=== PATIENT | female | born 2000 | race Caucasian/White ===

== ENCOUNTER 2020-04-02 05:44 | Inpatient (IN) | payer OTHER ==
[~2020-04-02] VITALS: Ht 162.6 cm; Wt 53.6 kg
[2020-04-02] MEDS ORDERED: WELLTAB38 PO (06:03)
[2020-04-02 06:27] LABS: MEAN CORPUSCULAR HEMOGLOBIN 30.4 pg (27.0-33.0); MEAN CORPUSCULAR HGB CONC 32.6 g/dl (32.0-36.5); MEAN CORPUSCULAR VOLUME 93.3 fl (80.0-96.0); PLATELET COUNT, AUTOMATED 266 10^3/uL (150-450); RED BLOOD COUNT 4.61 10^6/uL (4.00-5.40); WHITE BLOOD COUNT 7.2 10^3/uL (4.0-10.0)
[2020-04-02] MEDS ORDERED: C 50TAB PO (06:36)
[2020-04-02] MEDS ORDERED: BUPR150T5 PO (06:36)
[2020-04-02] MEDS ORDERED: D31000TA2 PO (06:36)
[2020-04-02] MEDS ORDERED: VITA500S3 SL (06:37)
[2020-04-02] MEDS ORDERED: HEAL1TAB6 PO (06:37)
[2020-04-02 06:48] LABS: AMPHETAMINES LEVEL URINE NEGATIVE (NEGATIVE); BARBITURATES URINE NEGATIVE (NEGATIVE); BENZODIAZEPINES URINE NEGATIVE (NEGATIVE); CANNABINOIDS URINE NEGATIVE (NEGATIVE); COCAINE METABOLITE URINE NEGATIVE (NEGATIVE); METHADONE URINE NEGATIVE (NEGATIVE); OPIATES URINE NEGATIVE (NEGATIVE); PHENCYCLIDINE URINE NEGATIVE (NEGATIVE)
[2020-04-02 06:54] LABS: HCG, SERUM QUALITATIVE NEGATIVE (NEGATIVE)
[2020-04-02 06:55] LABS: ACETAMINOPHEN LEVEL < 2.0 UG/ML (10.0-30.0); ALBUMIN 4.4 GM/DL (3.2-5.2); ALT/SGPT 22 U/L (12-78); BILIRUBIN,DIRECT < 0.1 MG/DL (0.0-0.2); BILIRUBIN,TOTAL 0.3 MG/DL (0.2-1.0); BLOOD UREA NITROGEN 16 MG/DL (7-18); CALCIUM LEVEL 9.3 MG/DL (8.5-10.1); CARBON DIOXIDE LEVEL 30 MEQ/L (21-32); CHLORIDE LEVEL 108 MEQ/L (98-107); CREATININE FOR GFR 1.06 MG/DL (0.55-1.30); ETHYL ALCOHOL (ETHANOL) < 0.003 % (0.000-0.010); GLUCOSE, FASTING 116 MG/DL (70-100); POTASSIUM SERUM 4.7 MEQ/L (3.5-5.1); SALICYLATE LEVEL < 1.7 MG/DL (5.0-30.0); SODIUM LEVEL 141 MEQ/L (136-145)
[2020-04-02] MEDS ORDERED: IBUPROFEN 400 MG TAB PO PRN (12:15)
[2020-04-02] MEDS ORDERED: diphenhydrAMINE 25MG CAP PO PRN (12:15)
[2020-04-02] MEDS ORDERED: haloperidoL 5 MG TAB PO PRN (12:15)
[2020-04-02] MEDS ORDERED: ACETAMINOPHEN TAB 650MG DOSE (2X325MG) PO PRN (12:15)
[2020-04-02] MEDS ORDERED: MOM 30ML SUSPENSION UDC PO PRN (12:15)
[2020-04-02] MEDS ORDERED: OLANZapine ORAL DISINTEGRATING TAB 5MG PO PRN (12:15)
[2020-04-02 13:30] VITALS: BP 133/90
[2020-04-02] MEDS: buPROPion **SR TABLET** (ZYBAN) 150MG PO SCH (15:54)
[2020-04-03 07:10] VITALS: BP 115/60
--- NOTE | 2020-04-03 07:57 | MHHPEPDOC ---
[facility] History & Physical History and Physical DATE OF ADMISSION: Apr 02, 2020 at 12:12 HPI: Moon presents today for an initial visit. She states that she came in today because her friend thought that she was going to overdose. She states that she would not be able to slit her wrists, and she would not overdose on Ibuprofen. She states that she does not want to live anymore, and she has always felt this way since 5th grade. Before that, she always had dreams about dying. She thought that she could pretend to feel better because her mom told her that she made other people uncomfortable. This is her second time in an inpatient unit. She was unconscious the first time in the ICU, and then they brought her to the psychiatric unit. She does see mental health as an outpatient. She denies having any auditory hallucinations. She states that she does have some paranoia whenever it is dark outside and late at night. She denies any traumatic history or any history of abuse. She reports that she has stayed up for a long period of time, but she did not do anything impulsive. She states that she has anxiety a bout small things. She thinks about her parents, if her mom will let her drive, or if her parents will make her eat food that she dislikes to eat. Her parents make her eat food in front of them, and then she will throw up the food afterwards in the shower. Her mom always tries to put her into a long-term care and it makes her feel unwanted. Her family was supposed to move to [place], but she thinks it is not happening anymore. She reports going to college for once semester, and she overdosed at the end of the semester. She was in the ICU for 4 days and the psychiatric unit for 3 days. MEDICATIONS: She is currently taking Wellbutrin 150 mg, but she states that it does not do anything. She has also taken Lexapro before, but she stopped it because it made her unable to connect with people emotionally. FAMILY HISTORY: She states that her mom has attempted suicide, but was not hospitalized and did not get any treatment. SOCIAL HISTORY - OCCUPATION: She states that she loves her job, and that when she helps others, it helps her feel better. SOCIAL HISTORY - LIVING SITUATION: She states that she currently lives with her mom and is currently employed. SOCIAL HISTORY - SUBSTANCE USE: She states that she has only drank once when she was at a constitution party with a friend, but she denies any tobacco, alcohol, or marijuana. Objective Appearance: Fair hygiene. Mood: Dysthymic. Speech: Normal volume. Normal rate. Spontaneous and Fluid. Cognition: Alert, Attentive, and Oriented to person, place, time. Grossly intact. Thought Form: Linear. Thought Content: No evidence of delusions. No evidence of aggressive or homicidal ideation. Reports suicidal thoughts. Judgement: Poor judgement. Insight: Poor insight. Assessment F60.3 Borderline personality disorder F33.9 Major depressive disorder, recurrent, unspecified Plan Start Abilify 2 mg nightly. Will not restart Wellbutrin. Treatment, one is risk for suicide, two is ineffective coping. Estimated length of stay is 3-5 days. Potential discharge next week if she improves, will convert to voluntary. Vital Signs Vital Signs Date Time Temp Pulse Resp B/P (MAP) Pulse Ox O2 Delivery O2 Flow Rate FiO2 04/03/20 07:10 98.3 61 14 115/60 (78) 100 Room Air Medications Scheduled Ascorbic Acid (Vitamin C) 500 Mg Tablet, 500 MG PO DAILY, (Reported) Bupropion Hcl (Bupropion HCl Sr) 150 Mg Tab.sr.12h, 150 MG PO DAILY, (Reported) Cholecalciferol (Vitamin D3) (Vitamin D3) 1,000 Unit Tablet, 1,000 UNITS PO DAILY, (Reported) Cyanocobalamin (Vitamin B-12) (Vitamin B-12) 500 Mcg Tab.subl, 500 MCG SL DAILY, (Reported) Multivitamin/Folic Acid/Biotin (Hair, Skin and Nails Tablet) 1 Each Tablet, 3 TAB PO DAILY, (Reported) Allergies Coded Allergies: No Known Allergies (Unverified , 04/02/20) DIONI PATEL DO Apr 03, 2020 07:57
[2020-04-03] MEDS: VITAMIN D 1,000 INTERNATIONAL UNITS TABLET PO SCH (09:00)
[2020-04-03] MEDS: buPROPion **SR TABLET** (ZYBAN) 150MG PO SCH (09:00)
[2020-04-03] MEDS: ASCORBIC ACID 500 MG TAB PO SCH (09:03)
[2020-04-03 16:00] VITALS: BP 128/80
[2020-04-03] MEDS: ARIPiprazole 2 MG TAB PO SCH (20:32)
[2020-04-04 06:17] VITALS: BP 113/57
[2020-04-04] MEDS: buPROPion **SR TABLET** (ZYBAN) 150MG PO SCH (08:43)
[2020-04-04] MEDS: VITAMIN D 1,000 INTERNATIONAL UNITS TABLET PO SCH (08:43)
[2020-04-04] MEDS: ASCORBIC ACID 500 MG TAB PO SCH (08:43)
[2020-04-04 16:08] VITALS: BP 129/70
[2020-04-04] MEDS: ARIPiprazole 2 MG TAB PO SCH (21:17)
[2020-04-04] MEDS: traZODone 50 MG TAB PO PRN (21:19)
--- NOTE | 2020-04-04 22:51 | HPEPDOC ---
General Date of Admission Apr 02, 2020 at 12:12 Date of Service: Apr 04, 2020 Chief Complaint The patient is a 19-year-old female admitted with a reason for visit of Unspecified Depressive Disorder. Source: Patient Exam Limitations: No limitations Timing/Duration: Unsure Severity: Severe Associated Symptoms: Denies Symptoms History of Present Illness 19 y.o F with PMH of depression presented for worsening depression. no medical condtions. ROS negative Home Medications Scheduled Ascorbic Acid (Vitamin C) 500 Mg Tablet, 500 MG PO DAILY, (Reported) Bupropion Hcl (Bupropion HCl Sr) 150 Mg Tab.sr.12h, 150 MG PO DAILY, (Reported) Cholecalciferol (Vitamin D3) (Vitamin D3) 1,000 Unit Tablet, 1,000 UNITS PO DAILY, (Reported) Cyanocobalamin (Vitamin B-12) (Vitamin B-12) 500 Mcg Tab.subl, 500 MCG SL DAILY, (Reported) Multivitamin/Folic Acid/Biotin (Hair, Skin and Nails Tablet) 1 Each Tablet, 3 TAB PO DAILY, (Reported) Allergies Coded Allergies: No Known Allergies (Unverified , 04/02/20) Past Medical History Medical History no known conditions Surgical History none Family History Significant Family History: Noncontributory Social History * Smoker: Denies Alcohol: Denies Drugs: denies Psychosocial History: Depression A-FIB/CHADSVASC A-FIB History Current/History of A-Fib/PAF?: No Current PO Anticoag Therapy: No Review of Systems Constitutional: Denies: Chills, Fever, Night Sweats Eyes: Denies: Pain, Vision change ENT: Denies: Head Aches, Ear Pain, Dysphagia Skin: Denies: Rash, Lesions, Breakdown Pulmonary: Denies: Dyspnea, Cough Cardiovascular: Denies: Chest Pain, Palpitations, Orthopnea, Paroxysmal Noc. Dyspnea, Lt Headedness Gastrointestinal: Denies: Nausea, Vomiting, Abdominal Pain, Diarrhea Genitourinary: Denies: Dysuria, Frequency, Incontinence, Retention Hematologic: Denies: Bruising, Bleeding Excessively Musculoskeletal: Denies: Neck Pain, Back Pain, Joint Pain, Muscle Pain, Spasms Neurological: Denies: Weakness, Numbness, Change in speech, Confusion Psych: Reports: Mood Normal; Denies: Depression, Memory Issues Physical Examination General Exam: Positive: Alert, No Acute Distress Eye Exam: Positive: PERRLA, Conjunctiva & lids normal, EOMI; Negative: Sclera icteric ENT Exam: Positive: Atraumatic, Mucous membr. moist/pink, Pharynx Normal Neck Exam: Positive: Supple; Negative: JVD, thyromegaly Chest Exam: Positive: Clear to auscultation, Normal air movement Heart Exam: Positive: Rate Normal, Regular Rhythm, Normal S1, Normal S2; Negative: Murmurs, Rubs Telemetry: Positive: No significant arrhythmia Abdomen Exam: Positive: Normal bowel sounds, Soft; Negative: Tenderness, Hepatospenomegaly Extremity Exam: Positive: Normal pulses; Negative: Clubbing, Cyanosis, Edema Skin Exam: Positive: Nl turgor and temperature; Negative: Breakdown, Lesion Neuro Exam: Positive: Normal Gait, Normal Speech, Cranial Nerves 3-12 NL, Ref lexes 2+ Psych Exam: Positive: Mental status NL, Mood NL, Oriented x 3 Vital Signs Vital Signs Date Time Temp Pulse Resp B/P (MAP) Pulse Ox O2 Delivery O2 Flow Rate FiO2 04/04/20 16:08 98.8 92 18 129/70 (89) 04/04/20 06:17 Room Air 04/03/20 07:10 100 Assessment/Plan 1. Major Depressive Disorder -per behavioral health Plan / VTE VTE Prophylaxis Ordered?: No VTE Exclusion Mechanical Proph: Low Risk for VTE VTE Exclusion Pharmacological: At Low Risk for VTE KIRK HANSEN DO Apr 04, 2020 22:51
[2020-04-05 06:39] VITALS: BP 138/80
[2020-04-05] MEDS: VITAMIN D 1,000 INTERNATIONAL UNITS TABLET PO SCH (08:53)
[2020-04-05] MEDS: ASCORBIC ACID 500 MG TAB PO SCH (08:53)
[2020-04-05] MEDS: buPROPion **SR TABLET** (ZYBAN) 150MG PO SCH (08:53)
[2020-04-05 16:16] VITALS: BP 122/74
[2020-04-05] MEDS: traZODone 50 MG TAB PO PRN (21:31)
[2020-04-05] MEDS: ARIPiprazole 2 MG TAB PO SCH (21:31)
[2020-04-06 06:12] VITALS: BP 110/68
[2020-04-06] MEDS: VITAMIN D 1,000 INTERNATIONAL UNITS TABLET PO SCH (09:13)
[2020-04-06] MEDS: buPROPion **SR TABLET** (ZYBAN) 150MG PO SCH (09:13)
[2020-04-06] MEDS: ASCORBIC ACID 500 MG TAB PO SCH (09:13)
--- NOTE | 2020-04-06 11:38 | MHIPNPDOC ---
[facility] Progress Note Progress Note DATE OF SERVICE: 04/06/20 Subjective HPI: Patient presents today regarding her family conflicts impacting her mental health. Patient feels like her suicidal thoughts are basically gone and most of her depression and stress comes from her family conflicts. She mentioned her parents wanting her to leave the house if she is not happy with them and vocalized issues she has with her family. Even though she has friends to live with, her parents are not okay with that, and she does not feel comfortable talking to them about anything. She does have to go back to her parents as she is dependent on them and relies on them. She mentioned feeling bad because she misses her family a lot but now realizes that they add to her stress and create issues with her mental health. To prevent possible suicidal thoughts and actions that commonly occur after a conflict, patient is advised to have a family discussion or meeting and work on managing the issues with a low tension environment. Objective Appearance: Well nourished. Appears to be stated age. Well groomed. Mood: distressed due to family conflicts. Generally good. Appropriately reactive. Speech: Normal rate. Spontaneous and Fluid. Normal volume. Cognition: Grossly Intact. Thought Form: Linear and goal directed. Dysthemic constricted. Thought Content: No evidence of suicidal ideation. No evidence of aggressive or homicidal ideation. No evidence of delusions. No thoughts of self harm. Perception: No perceptual abnormalities noted. Judgement: Fair. Insight: Fair. 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 Ask D/c c4 planner if a Skype family meeting call can be arranged to help with conflict management. Continue medications as is. Continue to observe. Possible family meeting or discussion tomorrow. Potential discharge Monday. Vital Signs Vital Signs Date Time Temp Pulse Resp B/P (MAP) Pulse Ox O2 Delivery O2 Flow Rate FiO2 04/06/20 06:12 98.0 70 16 110/68 (82) 04/04/20 06:17 Room Air 04/03/20 07:10 100 Current Medications Current Medications Medications (Trade) Dose Ordered Sig/Guillermo Route PRN Reason Start Time Stop Time Status Last Admin Dose Admin Acetaminophen (Tylenol Tab) 650 mg Q6HP PRN PO HEADACHE or DISCOMFORT 04/02/20 12:15 Aripiprazole (AbiLIFY) 2 mg QHS PO 04/03/20 21:00 04/05/20 21:31 Ascorbic Acid (Vitamin C) 500 mg DAILY PO 04/03/20 09:00 04/06/20 09:13 Bupropion HCl (Zyban, Wellbutrin Sr) 150 mg DAILY PO 04/02/20 13:00 04/06/20 09:13 Diphenhydramine HCl (Benadryl) 25 mg Q6HP PRN PO ANXIETY/AGITATION 04/02/20 12:15 Haloperidol (Haldol) 5 mg Q6HP PRN PO ANXIETY/AGITATION 04/02/20 12:15 Home Med (Med Rec Complete!) ASDIRECTED XX 04/02/20 06:45 04/02/20 06:38 DC Ibuprofen (Advil) 400 mg Q6HP PRN PO PAIN 04/02/20 12:15 Magnesium Hydroxide (Milk Of Magnesia) 30 ml DAILYPRN PRN PO CONSTIPATION 04/02/20 12:15 Olanzapine (ZyPREXA ZYDIS) 5 mg Q4HP PRN PO AGITATION 04/02/20 12:15 Trazodone HCl (Desyrel) 50 mg QHSP PRN PO INSOMNIA 04/02/20 12:15 04/05/20 21:31 Vitamin D (Vitamin D) 1,000 units DAILY PO 04/03/20 09:00 04/06/20 09:13 Allergies Coded Allergies: No Known Allergies (Unverified , 04/02/20) IDONI PATEL DO Apr 06, 2020 11:38
[2020-04-06 17:32] VITALS: BP 148/93
[2020-04-06] MEDS: ARIPiprazole 2 MG TAB PO SCH (20:11)
[2020-04-07 06:48] VITALS: BP 109/72
--- NOTE | 2020-04-07 07:59 | MHIPNPDOC ---
[facility] Progress Note Progress Note DATE OF SERVICE: 04/07/20 Subjective HPI: The patient was met with today. She reported that her depression is improving, and shes having less negative thoughts on her medications. Objective Behavior: Cooperative with good eye contact. Engaged. Pleasant. Mood: Less dysthymic. Thought Form: Linear and goal directed. Thought Content: No thoughts of self harm. No evidence of delusions. No evidence of suicidal ideation. No evidence of aggressive or homicidal ideation. Judgement: Intact as evidenced by decision making in the recent past. Insight: Good insight into symptoms and treatment options. Assessment F33.2 Major depressive disorder, recurrent severe without psychotic features Plan Continue medications. Potential discharge tomorrow. Will attempt to contact family. Vital Signs Vital Signs Date Time Temp Pulse Resp B/P (MAP) Pulse Ox O2 Delivery O2 Flow Rate FiO2 04/07/20 06:48 98.2 67 16 109/72 (84) 99 Room Air Current Medications Current Medications Medications (Trade) Dose Ordered Sig/Guillermo Route PRN Reason Start Time Stop Time Status Last Admin Dose Admin Acetaminophen (Tylenol Tab) 650 mg Q6HP PRN PO HEADACHE or DISCOMFORT 04/02/20 12:15 Aripiprazole (AbiLIFY) 2 mg QHS PO 04/03/20 21:00 04/06/20 20:11 Ascorbic Acid (Vitamin C) 500 mg DAILY PO 04/03/20 09:00 04/06/20 09:13 Bupropion HCl (Zyban, Wellbutrin Sr) 150 mg DAILY PO 04/02/20 13:00 04/06/20 09:13 Diphenhydramine HCl (Benadryl) 25 mg Q6HP PRN PO ANXIETY/AGITATION 04/02/20 12:15 Haloperidol (Haldol) 5 mg Q6HP PRN PO ANXIETY/AGITATION 04/02/20 12:15 Home Med (Med Rec Complete!) ASDIRECTED XX 04/02/20 06:45 04/02/20 06:38 DC Ibuprofen (Advil) 400 mg Q6HP PRN PO PAIN 04/02/20 12:15 Magnesium Hydroxide (Milk Of Magnesia) 30 ml DAILYPRN PRN PO CONSTIPATION 04/02/20 12:15 Olanzapine (ZyPREXA ZYDIS) 5 mg Q4HP PRN PO AGITATION 04/02/20 12:15 Trazodone HCl (Desyrel) 50 mg QHSP PRN PO INSOMNIA 04/02/20 12:15 04/05/20 21:31 Vitamin D (Vitamin D) 1,000 units DAILY PO 04/03/20 09:00 04/06/20 09:13 Allergies Coded Allergies: No Known Allergies (Unverified , 04/02/20) DIONI PATEL DO Apr 07, 2020 07:59
[2020-04-07] MEDS: ASCORBIC ACID 500 MG TAB PO SCH (08:31)
[2020-04-07] MEDS: buPROPion **SR TABLET** (ZYBAN) 150MG PO SCH (08:31)
[2020-04-07] MEDS: VITAMIN D 1,000 INTERNATIONAL UNITS TABLET PO SCH (08:31)
[2020-04-07 17:10] VITALS: BP 118/70
[2020-04-07] MEDS: traZODone 50 MG TAB PO PRN (21:00)
[2020-04-07] MEDS: ARIPiprazole 2 MG TAB PO SCH (21:00)
[2020-04-08 06:29] VITALS: BP 101/54
[2020-04-08] MEDS: buPROPion **SR TABLET** (ZYBAN) 150MG PO SCH (10:25)
[2020-04-08] MEDS: VITAMIN D 1,000 INTERNATIONAL UNITS TABLET PO SCH (10:25)
[2020-04-08] MEDS: ASCORBIC ACID 500 MG TAB PO SCH (10:25)
[2020-04-08 10:32] LABS: FREE THYROXINE INDEX 2.4 % (1.3-4.8); THYROID STIMULATING HORMONE 1.77 uIU/ML (0.463-3.98); THYROXINE (T4) 7.4 UG/DL (6.0-11.6)
--- NOTE | 2020-04-08 11:45 | MHDSPDOC ---
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 The patient made progress and became less dysthymic and depressed. We attempted a family meeting, however due to the coronavirus pandemic, we were unable toWhen patient stabilized and suicidal ideation was no longer endorsed, she requested a leave as she had a test to be a [employer]OTT[employer] and had been psychiatrically stable for several days. MEDICATIONS: She was admitted and resumed on her home Wellbutrin, on which she did well with augmented Abilify (2 mg) with positive changes. DISCHARGE ASSESSMENT[improved] Legal status considerations: The patient at the time of discharge did not meet criteria for involuntary admission/extension due to having a [normal] mental status exam, [fair] insight into the situation, They are engaged in the discharge process, as well as being friendly and amenable in behavioral control and havent been engaging in any observed concerning behavior or ideation recently. They decline voluntary extension/admission at this time and must be discharged in good judd, as Im unable to make a case for holding the patient against their will. They may have historical risk factors of admissions and other interactions with psychiatry however, those are not modifiable from a clinical perspective. The patient will need to be discharged in good judd. MENTAL STATUS EXAMINATION ON DISCHARGE: [General: Well dressed with good hygiene Speech: Spontaneous and fluid Thought processes: Linear and logical Thought content: Future orientated Abstract reasoning, and computation: Intact Description of associations: Intact Description of abnormal or psychotic thoughts:Denies any suicidal or homicidal ideation. Denies any auditory or visual hallucinations. Does not appear to be responding to internal stimuli. Does not appear to be endorsing any bizarre or paranoid ideation. Judgment: fair Insight: fair Orientation: Alert and orientated 3 Recent and remote memory: Intact Attention span and concentration: Intact Fund of knowledge: Adequate Mood: "okay" Affect: Euthymic with a full range] PLAN/FOLLOWUP ARRANGEMENTS: Follow up appointments made (PCP and MH in 5 days of D/C date) and safety plan completed. Safety Planning aspects completed prior to discharge [Medication supplies limited to 7 days with 4 refills to prevent accumulation to OD] [Family contact completed, educated on safe practices, instructed on removal and mitigation of dangerous means] [RN reviewed crisis hotline information and other aspects to empower patient to access care in interim before next appointment.] The amount of time spent in the coordination of care for this patient was approximately 30 minutes. Vital Signs/I&Os Vital Signs Date Time Temp Pulse Resp B/P (MAP) Pulse Ox O2 Delivery O2 Flow Rate FiO2 04/08/20 06:29 98.8 55 16 101/54 (70) 98 Room Air Laboratory Data Labs 24H Laboratory Tests 2 04/08/20 09:01: Thyroid Stimulating Hormone (TSH) 1.770, Free Thyroxine Index 2.4, Thyroxine (T4) 7.4, Triiodothyronine (T3) Uptake 32 Medications Scheduled Aripiprazole (Abilify) 2 Mg Tablet, 2 MG PO QHS for mood for 7 Days, #7 Ascorbic Acid (Vitamin C) 500 Mg Tablet, 500 MG PO DAILY, (Reported) Bupropion Hcl (Bupropion HCl Sr) 150 Mg Tab.sr.12h, 150 MG PO DAILY, (Reported) Cholecalciferol (Vitamin D3) (Vitamin D3) 1,000 Unit Tablet, 1,000 UNITS PO DAILY, (Reported) Cyanocobalamin (Vitamin B-12) (Vitamin B-12) 500 Mcg Tab.subl, 500 MCG SL DAILY, (Reported) Multivitamin/Folic Acid/Biotin (Hair, Skin and Nails Tablet) 1 Each Tablet, 3 TAB PO DAILY, (Reported) Allergies Coded Allergies: No Known Allergies (Unverified , 04/02/20) DIONI PATEL DO Apr 08, 2020 11:45
[2020-04-08] MEDS ORDERED: ABIL1TAB13 PO (11:50)
--- NOTE | 2020-05-22 12:01 | MHIPN ---
DATE: 04/04/2020 VITAL SIGNS: Blood pressure 113/57, pulse 63, temperature 98.7. CHIEF COMPLAINT: Feels depressed. OBJECTIVE: Seen in follow-up in the presence of staff. Says he is depressed and does not think that matters have improved much, just possibly slightly. Sleep remains difficult. Says he has racing thoughts. Has suicidal thoughts, not sure of any certain plans, but denies any while in the hospital. MENTAL STATUS EXAMINATION: Sitting up in bed, neat. Generally cooperative. No agitation. No psychomotor retardation. Affect is restricted in range. He does not tend to say much. Has suicidal thoughts, but no certain plans in the hospital. No homicidal ideation. There is no evidence of any psychosis. Cognition is grossly intact. Judgment and insight are compromised. ASSESSMENT: Major depressive disorder recurrent. PLAN: Continue current care. She is on Wellbutrin 150 mg daily and Abilify 2 mg at night. I was just looking at obtaining collateral information, encouraging the patient to participate in activities on the unit. Further recommendations will be made depending on the clinical picture. DARI
--- NOTE | 2020-05-22 12:02 | MHIPN ---
DATE: 04/05/2020 VITAL SIGNS: Blood pressure 138/80, pulse 75, temperature 99.2. CHIEF COMPLAINT: Feels depressed. SUBJECTIVE: Seen for followup in the presence of staff. Says feels depressed, but that she had a better night, and slept better, says feels rested, though has a bit of a headache, but no drowsiness when she woke up. She used the trazodone last night. Has been out in the sale[place], has been eating okay. MENTAL STATUS EXAMINATION: Neat, cooperative, somewhat guarded. Affect remains restricted. Vague on suicidal thoughts and plans, but does not indicate any immediately. No homicidal ideas or intents. No evidence of any psychosis. Cognition grossly intact. Judgment and insight fair. PLAN: Would suggest continuing with current care, she remains depressed, the better night last night has tended to help. Further recommendations will be made depending on the clinical picture, when she sees the assigned clinician tomorrow. DARI
== END 2020-04-08 13:20 | disposition home or self-care (01) | DRG 885 ==
LOC: M ED 05:44 → EDBD 05:44 → M ED INP 12:12 → M PSY 13:25
PROVIDERS: ADMIT Psychiatry & Neurology Addiction Medicine; ATTEND Psychiatry & Neurology Addiction Medicine
DX: F33.9 Major depressive disorder, recurrent, unspecified (principal); F60.3 Borderline personality disorder; F60.89 Other specific personality disorders; Z79.899 Other long term (current) drug therapy; Z63.8 Other specified problems related to primary support group

== ENCOUNTER → 2020-09-07 | Outpatient (REF) | payer SELFPAY ==
[~2020-09-07] MED LIST: ABIL1TAB13 PO; BUPR150T5 PO; C 50TAB PO; D31000TA2 PO; HEAL1TAB6 PO; VITA500S3 SL; WELLTAB38 PO
== END ==
LOC: M LABSMTC 08:35 → EDSTATUS 13:55 → M LABSMTC 14:03
PROVIDERS: ATTEND Pediatrics
DX: Z20.822 Contact with and (suspected) exposure to COVID-19 (principal)

== ENCOUNTER 2020-10-23 14:11 | Emergency (ER) | payer OTHER, SELFPAY ==
[~2020-10-23] VITALS: Ht 162.6 cm; Wt 57.7 kg
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
[2020-10-23] MEDS ORDERED: [UNRECOGNIZED DRUG - CODE] (15:31)
[2020-10-23] MEDS ORDERED: KETOROLAC 30 MG/ML 1ML VIAL IV ONE (16:10)
[2020-10-23] MEDS ORDERED: diazePAM 10MG/2ML SYRINGE (J3360 PER 5MG) IV ONE (16:10)
[2020-10-23] MEDS ORDERED: ISOVUE-370 76% 100ML VIAL As Ordered ONE (17:05)
[2020-10-23 17:23] LABS: BASO % 0.2 % (0.0-1.0); EOS # 0.1 10^3/uL (0.0-0.5); EOS % 0.5 % (0.0-3.0); HEMATOCRIT 42.7 % (36.0-47.0); HEMOGLOBIN 14.4 g/dl (12.0-15.5); LYMPH # 1.5 10^3/uL (1.5-5.0); LYMPH % 14.9 % (24.0-44.0); MEAN CORPUSCULAR HEMOGLOBIN 31.1 pg (27.0-33.0); MEAN CORPUSCULAR HGB CONC 33.7 g/dl (32.0-36.5); MEAN CORPUSCULAR VOLUME 92.2 fl (80.0-96.0); MONO # 0.5 10^3/uL (0.0-0.8); MONO % 5.3 % (2.0-8.0); NEUTROPHILS # 7.8 10^3/uL (1.5-8.5); NEUTROPHILS % 78.8 % (36.0-66.0); PLATELET COUNT, AUTOMATED 290 10^3/uL (150-450); RED BLOOD COUNT 4.63 10^6/uL (4.00-5.40); WHITE BLOOD COUNT 9.9 10^3/uL (4.0-10.0)
[2020-10-23 17:29] LABS: APPEARANCE, URINE HAZY (CLEAR); BACTERIA, URINE AUTO NEGATIVE (NEGATIVE); BILIRUBIN, URINE AUTO NEGATIVE (NEGATIVE); BLOOD, URINE BLOOD 1+ (NEGATIVE); COLOR, URINE YELLOW (YELLOW); GLUCOSE, URINE (UA) AUTO NEGATIVE (NEGATIVE); KETONE, URINE AUTO TRACE mg/dL (NEGATIVE); LEUKOCYTE ESTERASE, URINE AUTO TRACE (NEGATIVE); MUCUS, URINE SMALL (NEGATIVE); NITRITE, URINE AUTO NEGATIVE (NEGATIVE); PROTEIN, URINE AUTO 2+ mg/dL (NEGATIVE); RBC, URINE AUTO 8 /HPF (0-3); SPECIFIC GRAVITY URINE AUTO 1.025 (1.002-1.035); SQUAMOUS EPITHELIAL CELL UR AU 4 /HPF (0-6); UROBILINOGEN, URINE AUTO 0.2 mg/dL (0.0-2.0); WBC, URINE AUTO 6 /HPF (0-3)
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
[2020-10-23 17:54] VITALS: BP 132/75
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
[2020-10-23] MEDS ORDERED: ROBA750T4 PO (18:12)
[2020-10-23] MEDS ORDERED: NAPR-837 PO (18:12)
== END 2020-10-23 18:42 | disposition home or self-care (01) ==
LOC: M ED 14:11 → EDBD 14:11 → M ED 18:42
DX: R07.9 Chest pain, unspecified (principal); M54.6 Pain in thoracic spine; R10.9 Unspecified abdominal pain; V43.52XA Car driver injured in collision with other type car in traffic accident, initial encounter; Y92.410 Unspecified street and highway as the place of occurrence of the external cause; Z79.899 Other long term (current) drug therapy
CPT/HCPCS: 71260; 72125; 74177; 80047; 81001; 84702; 85025; 96374; 96375; 99284; J1885; J3360; Q9967